=== PATIENT | female | born 1970 | race Caucasian/White ===

== ENCOUNTER 2018-05-23 08:51 | Day surgery (SDC) | payer BC, MEDICAID ==
[2018-05-19 16:42] LABS: BASOPHILS # (AUTO) 0.1 X10'3 (0-0.2); BASOPHILS % (AUTO) 0.5 % (0-1); EOSINOPHILS # (AUTO) 0.3 X10'3 (0-0.9); EOSINOPHILS % (AUTO) 2.3 % (0-6); LYMPHOCYTES # (AUTO) 2.8 X10'3 (1.1-4.8); LYMPHOCYTES % (AUTO) 22.9 % (21-51); MEAN CORPUSCULAR HGB CONC 33.5 g/dL (33.0-36.5); MEAN CORPUSCULAR VOLUME 80.7 FL (78-98); MEAN PLATELET VOLUME 8.4 FL (7.4-10.4); MONOCYTES # (AUTO) 0.7 X10'3 (0-0.9); NEUTROPHILS # (AUTO) 8.2 X10'3 (1.8-7.7); NEUTROPHILS % (AUTO) 68.3 % (42-75); PRE OP HEMATOCRIT 38.8 % (35.0-45.0); PRE OP PLATELET COUNT 374 X10'3 (140-440); RED BLOOD COUNT 4.81 X10'6 (4.20-5.60); RED CELL DISTRIBUTION WIDTH 14.1 % (11.5-14.5)
[2018-05-19 16:57] LABS: ALBUMIN/GLOBULIN RATIO 0.7 (1.1-1.5); ALKALINE PHOSPHATASE 63 IU/L (46-116); BLOOD UREA NITROGEN 12 MG/DL (7-18); BUN/CREATININE RATIO 13.3 (6.6-38.0); CHLORIDE 102 MMOL/L (99-107); PRE OP ALT 23 U/L (30-65); PRE OP ANION GAP 10 (8-16); PRE OP AST 14 U/L (10-37); PRE OP BILIRUB, TOTAL 0.2 MG/DL (0.0-1.0); PRE OP GLUCOSE 87 MG/DL (70-104); PRE OP POTASSIUM 3.8 MMOL/L (3.4-5.1); PRE OP SODIUM 138 MMOL/L (135-145); TOTAL PROTEIN 7.3 G/DL (6.4-8.2); eGFR 67 ML/MIN
[2018-05-19 17:05] LABS: PARTIAL THROMBOPLASTIN TIME 27 SECONDS (22-32)
[~2018-05-23] VITALS: Ht 172.7 cm; Wt 117.4 kg
[2018-05-23] VITALS (17 sets, daily range): BP systolic 130–171; BP diastolic 70–98
[~2018-05-23 08:51] MED LIST: ALBU8.5H8 INH; D ME PO; FLUT16SP2 BOTHNARES; MENT5.8L12 PO; NORE1TAB21 PO; OMEP40CA37 PO; [UNRECOGNIZED DRUG - CODE] PO; ceFOXitin 2 GM ADDvantage bag 100 ML IV ONE; cefotetan 2gm/isosm dext IVPB 50 ML IV ONE; famotidine 20mg tablet PO ONE; ringers solution, lacted 1,000 ML IV SCH
[2018-05-23] MEDS ORDERED: clindamycin phosphate 40gm vag cream ONE (09:55)
[2018-05-23] MEDS ORDERED: morphine 10mg/ml inj. ONE (09:56)
[2018-05-23] MEDS ORDERED: LIDOcaine 1% 30ml preserv. free vial ONE (09:56)
[2018-05-23] MEDS ORDERED: BUPIVAcaine/PF 2.5mg/ml (0.25%) 10ml vial ONE (09:56)
[2018-05-23] MEDS ORDERED: vasoPRESSIN 20 units/ml inj. ONE (09:56)
[2018-05-23] MEDS ORDERED: ceFAZolin 1000mg inj ONE (09:56)
[2018-05-23] MEDS ORDERED: midazolam 2 mg/2 ml injection ONE (11:25)
[2018-05-23] MEDS ORDERED: fentaNYL /PF 50mcg/ml 5ml ampule ONE (11:27)
[2018-05-23] MEDS ORDERED: LIDOcaine 2% (20mg/ml) 5ml vial ONE (11:32)
[2018-05-23] MEDS ORDERED: propofol inj 20 ML IV ONE (11:32)
[2018-05-23] MEDS ORDERED: labetalol 20mg/4ml (5mg/ml) syringe IV ONE (11:35)
[2018-05-23] MEDS ORDERED: ondansetron/PF 4mg/2ml inj ONE (11:40)
[2018-05-23] MEDS ORDERED: rocuronium 10mg/ml inj IV ONE ×2 (12:00)
[2018-05-23] MEDS ORDERED: ringers solution, lacted 1,000 ML IV SCH (12:13)
[2018-05-23] MEDS ORDERED: fentaNYL/PF 50MCG/1 ML 2ML syringe IV PRN ×2 (12:15)
[2018-05-23] MEDS ORDERED: ondansetron/PF 4mg/2ml inj IV PRN ×2 (12:15→14:35)
[2018-05-23] MEDS ORDERED: labetalol 20mg/4ml (5mg/ml) syringe IV PRN (12:15)
[2018-05-23] MEDS ORDERED: hydrALAZINE 20mg/ml inj. IV PRN (12:15)
[2018-05-23] MEDS ORDERED: morphine 4 MG/ML inj SYRINge IV PRN ×2 (12:15)
[2018-05-23] MEDS ORDERED: fentaNYL/PF 50MCG/1 ML 2ML syringe ONE (13:48)
[2018-05-23] MEDS ORDERED: glycopyrrolate 0.2mg/ml inj ONE (14:13)
--- NOTE | 2018-05-23 14:27 | NUR ---
Received from OR via , accompanied by Anesthesiologist DR CONLEY and report given by Anesthesiolgist. AWAKENS TO VOICE. VITALS STABLE. DRESSINGS DI. RAY PAIN. ABD SOFT. OLGUIN WITH CLEAR URINE.
[2018-05-23] MEDS: ringers solution, lacted 1,000 ML IV SCH ×2 (14:32→20:25)
[2018-05-23] MEDS ORDERED: normal saline 500ml IV soln 500 ML IV PRN (14:35)
[2018-05-23] MEDS ORDERED: diphenhydrAMINE 50 mg/ml inj IV PRN (14:35)
[2018-05-23] MEDS ORDERED: temazepam 15mg capsule PO PRN (14:35)
[2018-05-23] MEDS ORDERED: naloxone 0.4 mg/ml inj IV PRN (14:35)
[2018-05-23] MEDS ORDERED: CADD PCA waste documentation MC PRN (14:35)
[2018-05-23] MEDS ORDERED: HYDROcodone/acetaminophen 5mg/325mg tablet PO PRN ×2 (14:35)
[2018-05-23] MEDS ORDERED: magnesium hydroxide 30ml (MOM) UD suspension PO PRN (14:35)
[2018-05-23] MEDS: HYDROmorphone/NS 1 mg/ml CADD 50 ML IV SCH ×5 (14:59→23:00)
--- NOTE | 2018-05-23 15:20 | NUR ---
Report received from GIS PROFESSORManoj.
--- NOTE | 2018-05-23 15:27 | NUR ---
Report called to receiving nurse. Transferred via BED Belongings . Special Issues communicated to receiving nurse. AWAKE AND ORIENTED. VITALS STABLE. DRESSINGS DI. RAY PAIN. TO SURGICAL RM 346A AT THIS TIME.
--- NOTE | 2018-05-23 15:40 | NUR ---
Pt arrived to room 346A from PACU
[2018-05-23] MEDS: ketorolac trometh. 30mg/ml inj. IV PRN ×2 (15:52→21:59)
[2018-05-23] MEDS ORDERED: albuterol 2.5 MG/3 ML nebule NEB PRN (17:00)
[2018-05-23] MEDS ORDERED: mag hydrox/Alum hydrox/simeth 30ml oral suspension PO PRN (17:05)
[2018-05-23] MEDS: simethicone 80mg chew tab PO SCH (17:53)
[2018-05-23] MEDS ORDERED: pantoprazole 40mg Tablet.DR PO SCH (18:23)
--- NOTE | 2018-05-23 18:30 | NUR ---
Problems reprioritized. Patient report given, questions answered & plan of care reviewed with Adore Avitia RN.
--- NOTE | 2018-05-23 18:35 | NUR ---
Patient in room [facility] 346. I have received report from RAY POLK and had the opportunity to ask questions and assume patient care.
[2018-05-23] MEDS: docusate sod 100mg capsule PO SCH (20:24)
[2018-05-24] VITALS: BP 133/71
[2018-05-24] MEDS: HYDROmorphone/NS 1 mg/ml CADD 50 ML IV SCH ×6 (01:00→10:56)
[2018-05-24 04:00] VITALS: BP 149/73
[2018-05-24 05:03] LABS: BASOPHILS % (AUTO) 0.1 % (0-1); EOSINOPHILS % (AUTO) 0 % (0-6); HEMATOCRIT 35.3 % (35.0-45.0); HEMOGLOBIN 11.9 g/dl (12.0-16.0); LYMPHOCYTES # (AUTO) 1.4 X10'3 (1.1-4.8); MEAN CORPUSCULAR HEMOGLOBIN 27.2 PG (27.0-31.0); MEAN CORPUSCULAR HGB CONC 33.5 g/dL (33.0-36.5); MEAN CORPUSCULAR VOLUME 81.1 FL (78-98); MEAN PLATELET VOLUME 8.7 FL (7.4-10.4); MONOCYTES # (AUTO) 0.8 X10'3 (0-0.9); MONOCYTES % (AUTO) 5.4 % (2-12); NEUTROPHILS # (AUTO) 12.1 X10'3 (1.8-7.7); NEUTROPHILS % (AUTO) 84.5 % (42-75); PLATELET COUNT 299 X10'3 (140-440); RED BLOOD COUNT 4.35 X10'6 (4.20-5.60); RED CELL DISTRIBUTION WIDTH 14.2 % (11.5-14.5); WHITE BLOOD COUNT 14.3 X10'3 (4.5-11.0)
[2018-05-24] MEDS: ringers solution, lacted 1,000 ML IV SCH ×2 (05:08→13:09)
--- NOTE | 2018-05-24 06:30 | NUR ---
Problems reprioritized. Patient report given, questions answered & plan of care reviewed with FABIO POLK.
[2018-05-24] MEDS: simethicone 80mg chew tab PO SCH ×2 (07:22→13:08)
[2018-05-24] MEDS: docusate sod 100mg capsule PO SCH (07:22)
[2018-05-24] MEDS ORDERED: pantoprazole 40mg Tablet.DR PO SCH ×2 (07:30→18:20)
[2018-05-24] MEDS: ketorolac trometh. 30mg/ml inj. IV PRN ×2 (08:47→14:58)
[2018-05-24 09:03] VITALS: BP 138/88
[2018-05-24 12:00] VITALS: BP 142/86
--- NOTE | 2018-05-24 16:35 | NUR ---
reviewed D/C instructions with pt. pt verbalized understanding. waiting for her ride.
--- NOTE | 2018-05-24 16:47 | NUR ---
pt escorted to lobby in w/c with one staff and s/o at side. all belongings sent with pt.
== END 2018-05-24 16:50 | disposition home or self-care (01) ==
LOC: PAS 08:51 → SUR 3N 14:32 → PAS 05-24 16:50
PROVIDERS: ATTEND Specialist
DX: D25.0 Submucous leiomyoma of uterus (principal); N89.8 Other specified noninflammatory disorders of vagina; N81.4 Uterovaginal prolapse, unspecified; N39.46 Mixed incontinence; N81.6 Rectocele; N36.42 Intrinsic sphincter deficiency (ISD); F41.8 Other specified anxiety disorders; G43.909 Migraine, unspecified, not intractable, without status migrainosus; K21.9 Gastro-esophageal reflux disease without esophagitis; I10 Essential (primary) hypertension; E66.01 Morbid (severe) obesity due to excess calories; Z79.891 Long term (current) use of opiate analgesic; Z91.048 Other nonmedicinal substance allergy status; Z88.4 Allergy status to anesthetic agent; Z68.39 Body mass index [BMI] 39.0-39.9, adult; Z85.828 Personal history of other malignant neoplasm of skin; Z79.1 Long term (current) use of non-steroidal anti-inflammatories (NSAID); Z88.8 Allergy status to other drugs, medicaments and biological substances; Z79.899 Other long term (current) drug therapy; Z98.890 Other specified postprocedural states
CPT/HCPCS: 36415; 57265; 57283; 57288; 58552; 80053; 82948; 85025; 85610; 85730; 86885; 86900; 86901; 87070; 93005; A6255; C1771; J0690; J1170; J1885; J2001; J2250; J2270; J2405; J2704; J3010; J3490; J7120; A4315; A4355; A6250; A7000; G0378; J0694; J7030

== ENCOUNTER 2021-08-11 11:02 | Day surgery (SDC) | payer MEDICAID ==
[~2021-08-11] VITALS: Ht 170.2 cm; Wt 107.5 kg
[~2021-08-11 11:02] MED LIST changes: +ALBU8.5H17 INH; -ALBU8.5H8 INH; +OMEP40CA21 PO; -OMEP40CA37 PO; -ceFOXitin 2 GM ADDvantage bag 100 ML IV ONE; -cefotetan 2gm/isosm dext IVPB 50 ML IV ONE; -famotidine 20mg tablet PO ONE; -ringers solution, lacted 1,000 ML IV SCH
[2021-08-11] MEDS ORDERED: GABA300C PO (11:30)
[2021-08-11] MEDS ORDERED: TAMO20TA4 PO (11:31)
[2021-08-11] MEDS ORDERED: Tylenol PO (11:32)
[2021-08-11 11:35] VITALS: BP 138/74
[2021-08-11] MEDS ORDERED: normal saline 1000ml 1,000 ML IV SCH (11:35)
[2021-08-11] MEDS ORDERED: [UNRECOGNIZED DRUG - OTHER] PO (11:38)
[2021-08-11] MEDS ORDERED: CLON0.1T PO (11:38)
[2021-08-11] MEDS ORDERED: PROC-8 PO (11:38)
[2021-08-11] MEDS ORDERED: IBUP-1985 PO (11:38)
[2021-08-11] MEDS ORDERED: [UNRECOGNIZED DRUG - CODE] (11:38)
[2021-08-11] MEDS ORDERED: SILV50CR31 TOP (11:38)
[2021-08-11] MEDS ORDERED: Tums (11:38)
[2021-08-11] MEDS ORDERED: LIDOcaine 1%/PF 5ML 10 MG/ML VIAL ONE (13:04)
[2021-08-11 13:50] VITALS: BP 146/94
== END 2021-08-11 14:20 | disposition home or self-care (01) ==
LOC: SSTAY O 11:02
PROVIDERS: ATTEND Radiology Diagnostic Radiology
DX: Z45.2 Encounter for adjustment and management of vascular access device (principal); C50.211 Malignant neoplasm of upper-inner quadrant of right female breast; I10 Essential (primary) hypertension; G62.9 Polyneuropathy, unspecified; Z90.11 Acquired absence of right breast and nipple; Z88.8 Allergy status to other drugs, medicaments and biological substances; Z79.899 Other long term (current) drug therapy
CPT/HCPCS: 36590; J3490